=== PATIENT | female | born 1940 | race Hispanic/Latino ===

== ENCOUNTER 2016-09-26 13:11 | Inpatient (IN) | payer MEDICAID, MEDICARE ==
[2016-09-26] MEDS ORDERED: Iohexol 240 (50 ml) PO ONE (15:00)
[2016-09-26] MEDS ORDERED: Sodium Chloride 0.9% 1,000 ML IV STA (15:00)
[2016-09-26] MEDS ORDERED: Iohexol 240 (50 ml) ONE (15:06)
--- NOTE | 2016-09-26 15:06 | ED PDOC ---
HPI: Abdomen Time Seen by Provider: 09/26/16 14:52 Chief Complaint (Nursing): Abdominal Pain Chief Complaint (Provider): Abdominal Pain History Per: Patient History/Exam Limitations: no limitations Onset/Duration Of Symptoms: Days (2x) Current Symptoms Are (Timing): Still Present Severity: Moderate Location Of Pain/Discomfort: RLQ Associated Symptoms: denies: Fever, Vomiting, Diarrhea, Urinary Symptoms Additional Complaint(s): 76 year old female with a pertinent medical history of colon CA (last chemo was 3x years ago) status post colon resection presents to the ED with complaints of RLQ abdominal pain that started 2x days ago. She denies having vomiting, diarrhea, fevers, and urinary symptoms. PMD: Karin Eagle MD Past Medical History Reviewed: Historical Data, Nursing Documentation, Vital Signs Vital Signs: Last Vital Signs Temp 98.4 F 09/26/16 14:24 Pulse 73 09/26/16 14:24 Resp 20 09/26/16 14:24 BP 141/59 L 09/26/16 14:24 Pulse Ox 98 09/26/16 17:36 - Medical History PMH: Dementia, HTN, Hyperlipidemia Other PMH: colon cancer, last chemo 3x years ago - Surgical History Other surgeries: colon resection - Family History Family History: States: Unknown Family Hx - Social History Alcohol: None Drugs: Denies - Allergies Allergies/Adverse Reactions: Allergies Allergy/AdvReac Type Severity Reaction Status Date / Time diphenhydramine Allergy ITCHING Verified 09/26/16 14:28 [From Benadryl] methylprednisolone Allergy ITCHING Verified 09/26/16 14:28 moxifloxacin Allergy ITCHING Verified 09/26/16 14:28 Review of Systems ROS Statement: Except As Marked, All Systems Reviewed And Found Negative Constitutional: Negative for: Fever Gastrointestinal: Positive for: Abdominal Pain (RLQ). Negative for: Vomiting, Diarrhea Genitourinary Female: Negative for: Dysuria, Hematuria Physical Exam - Reviewed Nursing Documentation Reviewed: Yes Vital Signs Reviewed: Yes - Physical Exam Appears: Positive for: Well, Non-toxic, No Acute Distress Head Exam: Positive for: ATRAUMATIC, NORMOCEPHALIC Skin: Positive for: Normal Color, Warm, Dry Cardiovascular/Chest: Positive for: Regular Rate, Rhythm Respiratory: Positive for: Normal Breath Sounds. Negative for: Respiratory Distress Gastrointestinal/Abdominal: Positive for: Tenderness (RLQ). Negative for: Rebound Extremity: Positive for: Normal ROM Neurologic/Psych: Positive for: Alert, Oriented (3x) - Laboratory Results Result Diagrams: 09/26/16 15:15 09/26/16 15:15 - ECG O2 Sat by Pulse Oximetry: 98 (RA) Pulse Ox Interpretation: Normal Medical Decision Making Medical Decision Makin:52 Initial impression: 76 year old female with RLQ abdominal pain. Initial plan: * CT abd and pelvis with PO and IV contrast * CMP * udip * CBC * IV NS 1,000ml IV 100mls/hr * omnipaque 240 50ml PO * reevaluation 17:00 Patient is signed out by me to Everton Ashton III, MD pending CT abdomen and pelvis, reevaluation, and final disposition. Scribe Attestation: Documented by Palma Frank, acting as a scribe for Andrew Gaona MD. Provider Scribe Attestation: All medical record entries made by the Scribe were at my direction and personally dictated by me. I have reviewed the chart and agree that the record accurately reflects my personal performance of the history, physical exam, medical decision making, and the department course for this patient. I have also personally directed, reviewed, and agree with the discharge instructions and disposition. Disposition - Clinical Impression Clinical Impression: Abdominal pain - Patient ED Disposition Is Patient to be Admitted: Transfer of Care - Disposition Disposition: Transfer of Care Disposition Time: 17:41 Condition: FAIR Patient Signed Over To: Everton Ashton III
[2016-09-26 15:36] LABS: BASO % 0.6 % (0.0-2.0); EOS # 0.1 K/uL (0.0-0.7); EOS % 1.7 % (0.0-4.0); HEMATOCRIT 39.8 % (34.0-47.0); LYMPH # 1.5 K/uL (1.0-4.3); LYMPH % 23.8 % (20.0-40.0); MEAN CELL VOLUME 90.5 fl (81.0-99.0); MEAN CORPUSCULAR HEMOGLOBIN 29.9 pg (27.0-31.0); MEAN PLATELET VOLUME 8.2 fl (7.2-11.7); MONO # 0.7 K/uL (0.0-0.8); MONO % 10.8 % (0.0-10.0); NEUT % 63.1 % (50.0-75.0); RED CELL DISTRIBUTION WIDTH 13.5 % (11.5-14.5); WHITE BLOOD COUNT 6.3 K/uL (4.8-10.8)
[2016-09-26 15:43] LABS: ALB/GLOB RATIO 1.7 (1.0-2.1); ALKALINE PHOSPHATASE 107 U/L (38-126); ALT/SGPT 30 U/L (9-52); AST/SGOT 27 U/L (14-36); BILIRUBIN,TOTAL 0.3 mg/dl (0.2-1.3); BLOOD UREA NITROGEN 20 mg/dl (7-17); CALCIUM 8.9 mg/dL (8.4-10.2); CARBON DIOXIDE 27 mmol/L (22-30); CHLORIDE 102 mmol/L (98-107); GFR AFRICAN-AMERICAN > 60; GLUCOSE,RANDOM 94 mg/dL (65-105); POTASSIUM 3.1 MMOL/L (3.6-5.0); SODIUM 145 mmol/l (132-148); TOTAL PROTEIN 7.5 G/DL (6.3-8.2)
[2016-09-26] MEDS ORDERED: Potassium Chloride 20 mEq ER Tab PO ONE ×2 (16:08→18:35)
[2016-09-26] MEDS ORDERED: Sodium Chloride 0.9% 50 ML IV ONE (16:50)
[2016-09-26] MEDS ORDERED: Iohexol 300 50 ML ONE (16:50)
--- NOTE | 2016-09-26 17:36 | ED PDOC ---
- Laboratory Results Result Diagrams: 09/27/16 06:10 09/27/16 06:10 - ECG O2 Sat by Pulse Oximetry: 98 (RA) Medical Decision Making Medical Decision Makin:00 Patient is signed out to me by Andrew Gaona MD pending CT abdomen and pelvis , reevaluation, and final disposition. CT reveals acute cholecystitis. Admit to medicine Dr Eagle with surgical consult Dr Barnes and GI Dr Ennis. Ryann initiated. vice president compliance aware and in ED. Scribe Attestation: Documented by Palma Frank, acting as a scribe for Everton Ashton III, MD. Provider Scribe Attestation: All medical record entries made by the Scribe were at my direction and personally dictated by me. I have reviewed the chart and agree that the record accurately reflects my personal performance of the history, physical exam, medical decision making, and the department course for this patient. I have also personally directed, reviewed, and agree with the discharge instructions and disposition. Disposition Counseled Patient/Family Regarding: Studies Performed, Diagnosis, Need For Followup, Rx Given - Clinical Impression Clinical Impression: Acute cholecystitis - POA Present On Arrival: None - Disposition Disposition: Admitted as In-Patient Disposition Time: 17:45 Condition: FAIR
--- NOTE | 2016-09-26 17:51 | CT ---
PROCEDURE: CT Abdomen and Pelvis with contrast HISTORY: abd pain COMPARISON: 01/01/2016 TECHNIQUE: Contrast dose: 100 cc of Omnipaque Radiation dose: Total exam DLP = 407 mGy-cm. This CT exam was performed using one or more of the following dose reduction techniques: Automated exposure control, adjustment of the mA and/or kV according to patient size, and/or use of iterative reconstruction technique. FINDINGS: LOWER THORAX: Unremarkable. LIVER: Unremarkable. No gross lesion or ductal dilatation. GALLBLADDER AND BILE DUCTS: Mild gallbladder wall enhancement with pericholecystic fluid as well significantly dilated extrahepatic common bile duct measuring up to 18 millimeters in the lucy hepatis and worsened since the prior examination. Mild intrahepatic biliary dilatation. Correlate clinically for cholecystitis. PANCREAS: Unremarkable. No gross lesion or ductal dilatation. SPLEEN: Unremarkable. ADRENALS: Unremarkable. No mass. KIDNEYS AND URETERS: Unremarkable. No hydronephrosis. No solid mass. VASCULATURE: Unremarkable. No aortic aneurysm. BOWEL: Unremarkable. No obstruction. No gross mural thickening. APPENDIX: Normal appendix. PERITONEUM: Unremarkable. No free fluid. No free air. LYMPH NODES: Unremarkable. No enlarged lymph nodes. BLADDER: Unremarkable. REPRODUCTIVE: Unremarkable. BONES: No acute fracture. OTHER FINDINGS: None. IMPRESSION: Mild gallbladder wall enhancement with pericholecystic fluid as well significantly dilated extrahepatic common bile duct measuring up to 18 millimeters in the lucy hepatis and worsened since the prior examination. Mild intrahepatic biliary dilatation. Correlate clinically for cholecystitis
[2016-09-26] MEDS ORDERED: Piperacillin/Tazobact 4.5 GM in Sodium Chloride 0.9% 100 ML IVPB STA (18:50)
--- NOTE | 2016-09-26 20:57 | CP.PCM.CON ---
History of Present Illness - History of Present Illness History of Present Illness: SURGERY CONSULT NOTE FOR DR. VUONG 76F presents to [facility] with abdominal pain that began on Sunday. Patient and daughter states the pain comes and goes but increases in intensity each time. Pain is located in the right upper quadrant and gets worse with food intake. Last food intake was this morning. Patient denies nausea, vomiting, fevers or chills. Patient admits to diarrhea and denies constipation. PMH: Stomach and thyroid cancers (she had chemo therapy treatment years ago), HTN, HLD PSH: Ex-lap for stomach Ca, Thyroidectomy (done at [facility] ago, do not remember Surgeon) Social: denies tobacco, alcohol, illicit drug Allergies: Benadryl, Methylprednisolone, moxifloxacin Past Patient History - Past Social History Alcohol: None Drugs: Denies - CARDIAC Hx Hypertension: Yes - NEUROLOGICAL Hx Dementia: Yes - HEMATOLOGICAL/ONCOLOGICAL Hx Cancer: Yes (Stomach) - PSYCHIATRIC Hx Substance Use: No - ANESTHESIA Hx Anesthesia: Yes Hx Anesthesia Reactions: No Meds Allergies/Adverse Reactions: Allergies Allergy/AdvReac Type Severity Reaction Status Date / Time diphenhydramine Allergy ITCHING Verified 09/26/16 14:28 [From Benadryl] methylprednisolone Allergy ITCHING Verified 09/26/16 14:28 moxifloxacin Allergy ITCHING Verified 09/26/16 14:28 - Medications Medications: Current Medications Sodium Chloride (Sodium Chloride 0.9%) 1,000 mls @ 100 mls/hr IV .Q10H [facility] Stop: 09/27/16 00:59 Last Admin: 09/26/16 15:16 Dose: 100 mls/hr Physical Exam - Constitutional Appears: Non-toxic, No Acute Distress - Head Exam Head Exam: ATRAUMATIC - Eye Exam Eye Exam: EOMI, PERRL - ENT Exam ENT Exam: Mucous Membranes Moist - Respiratory Exam Respiratory Exam: Clear to Auscultation Bilateral, NORMAL BREATHING PATTERN - Cardiovascular Exam Cardiovascular Exam: REGULAR RHYTHM, +S1, +S2 - GI/Abdominal Exam GI & Abdominal Exam: Soft, Tenderness. absent: Distended, Firm, Guarding, Rebound, Rigid Additional comments: previous ex-lap scar noted. positive gutierrez's sign. - Extremities Exam Extremities exam: Negative for: pedal edema, tenderness - Neurological Exam Neurological exam: Alert, Oriented x3 - Psychiatric Exam Psychiatric exam: Normal Affect, Normal Mood - Skin Skin Exam: Dry, Intact, Normal Color, Warm Results - Vital Signs Recent Vital Signs: Last Vital Signs Temp 97.6 F 09/26/16 20:34 Pulse 95 H 09/26/16 20:34 Resp 18 09/26/16 20:34 BP 150/72 09/26/16 20:34 Pulse Ox 98 09/26/16 20:34 - Labs Result Diagrams: 09/26/16 15:15 09/26/16 15:15 Labs: Laboratory Results - last 24 hr 09/26/16 19:04 Lipase 28 Assessment & Plan - Assessment and Plan (Free Text) Assessment: 76F presents with abdominal pain 2/[address] Scan: Mild gallbladder wall enhancement with pericholecystic fluid as well, signficantly dilated [id number], worsened since prior LFTs: within normal limits Plan: - NPO, IVF, Antibiotics, pain control - Abdominal US - CBC/CMP - GI consult recommended - We will continue to follow patient Discussed with Dr. Molly Lynn, PGY1
[2016-09-27] MEDS ORDERED: Piperacillin/Tazobact 3.375 GM in Sodium Chloride 0.9% 100 ML IVPB SCH (01:00)
[2016-09-27] MEDS ORDERED: Sodium Chloride 0.9% 1,000 ML IV SCH (01:00)
[2016-09-27] MEDS: Potassium Chl 20 mEq in D5-NS 1,000 ML IV SCH ×2 (01:26→09:12)
[2016-09-27] MEDS ORDERED: HYDROmorphone 0.5 mg/0.5 ml ISec IVP PRN (03:51)
[2016-09-27 07:24] LABS: BASO % 0.7 % (0.0-2.0); EOS # 0.2 K/uL (0.0-0.7); EOS % 3.7 % (0.0-4.0); HEMATOCRIT 36.4 % (34.0-47.0); LYMPH % 21.7 % (20.0-40.0); MEAN CELL VOLUME 90.4 fl (81.0-99.0); MEAN CORPUSCULAR HEMOGLOBIN 30.5 pg (27.0-31.0); MEAN CORPUSCULAR HGB CONC 33.8 g/dL (33.0-37.0); MEAN PLATELET VOLUME 8.3 fl (7.2-11.7); MONO # 0.6 K/uL (0.0-0.8); MONO % 12.8 % (0.0-10.0); NEUT # 2.9 K/uL (1.8-7.0); NEUT % 61.1 % (50.0-75.0); NRBC % 0.2 % (0.0-0.0); RED CELL DISTRIBUTION WIDTH 13.2 % (11.5-14.5); WHITE BLOOD COUNT 4.7 K/uL (4.8-10.8)
[2016-09-27 07:27] LABS: ALB/GLOB RATIO 1.6 (1.0-2.1); ALKALINE PHOSPHATASE 79 U/L (38-126); ALT/SGPT 31 U/L (9-52); AST/SGOT 21 U/L (14-36); BILIRUBIN,TOTAL 0.4 mg/dl (0.2-1.3); BLOOD UREA NITROGEN 10 mg/dl (7-17); CALCIUM 8.4 mg/dL (8.4-10.2); CARBON DIOXIDE 28 mmol/L (22-30); CHLORIDE 106 mmol/L (98-107); GFR AFRICAN-AMERICAN > 60; GLUCOSE,RANDOM 104 mg/dL (65-105); POTASSIUM 3.8 MMOL/L (3.6-5.0); SODIUM 144 mmol/l (132-148)
--- NOTE | 2016-09-27 08:16 | CP.PCM.PN ---
Subjective - Date & Time of Evaluation Date of Evaluation: 09/27/16 Time of Evaluation: 08:14 - Subjective Subjective: General Surgery Progress Note for Dr. Barnes This 76F was seen and examined this AM at bedside. She reports no acute events overnight. Her pain is currently well controlled. She is passing gas has not had a BM since yesterday. She denies any fevers, chills, chest pain, nausea, diarrhea. Objective - Vital Signs/Intake and Output Vital Signs (last 24 hours): Temp Pulse Resp BP Pulse Ox 98.0 F 71 20 142/72 96 09/27/16 08:11 09/27/16 08:11 09/27/16 08:11 09/27/16 08:11 09/27/16 08:11 - Medications Medications: Current Medications Famotidine (Pepcid) 20 mg IVP DAILY [facility] Hydromorphone HCl (Dilaudid) 0.5 mg IVP Q4 PRN PRN Reason: Pain, moderate (4-7) Potassium Chloride/Dextrose/Sod Cl (Potassium Chl 20 Meq In D5-Ns) 1,000 mls @ 100 mls/hr IV .Q10H [facility] Stop: 09/27/16 23:06 Last Admin: 09/27/16 01:26 Dose: 100 mls/hr Ceftriaxone Sodium 1 gm/ (Sodium Chloride) 100 mls @ 100 mls/hr IVPB DAILY [facility] - Labs Labs: 09/27/16 06:10 09/27/16 06:10 PT 10.6 SECONDS (9.6-11.2) 09/27/16 06:10 INR 1.02 (0.92-1.08) 09/27/16 06:10 APTT 26.0 SECONDS (23.3-32.5) 09/27/16 06:10 - Constitutional Appears: Non-toxic, No Acute Distress - Head Exam Head Exam: ATRAUMATIC, NORMOCEPHALIC - Eye Exam Eye Exam: EOMI - ENT Exam ENT Exam: Mucous Membranes Moist - Respiratory Exam Respiratory Exam: NORMAL BREATHING PATTERN - Cardiovascular Exam Cardiovascular Exam: REGULAR RHYTHM - GI/Abdominal Exam GI & Abdominal Exam: Soft. absent: Distended, Firm, Guarding, Rigid, Tenderness - Extremities Exam Extremities Exam: Normal Inspection - Neurological Exam Neurological Exam: Alert, Awake - Psychiatric Exam Psychiatric exam: Normal Affect, Normal Mood - Skin Skin Exam: Dry, Intact Assessment and Plan - Assessment and Plan (Free Text) Assessment: This is a 76F with a PMH of stomach and thyroid cancer, HTn, HLD who presented with abdominal pain. CT abd significant for GB wall enchancment with pericholecystic fluid, and a 18mm CBD. Vital signs stable, Labs WNL US report pending MRCP pending will followup GI consulted PT NPO Continue antibiotics Continue pain control Will discuss with Dr. Molly Chan PGY-6
--- NOTE | 2016-09-27 09:28 | US ---
HISTORY: abdominal pain, CBD 18mm COMPARISON: CT scan dated same day. TECHNIQUE: Sonographic evaluation of the abdomen. FINDINGS: LIVER: Measures cm. Normal echogenicity of the liver parenchyma. No mass. No intrahepatic bile duct dilatation. GALLBLADDER: Diffuse gallbladder wall thickening without calculi. Dilated extrahepatic common bile duct measuring up to 14 millimeters. COMMON BILE DUCT: Measures mm. No stones. No dilatation. PANCREAS: Unremarkable as visualized. No mass. pancreatic duct dilatation. RIGHT KIDNEY: Measures cm. Normal echogenicity. No calculus, mass, or hydronephrosis. LEFT KIDNEY: Measures cm. Normal echogenicity. No calculus, mass, or hydronephrosis. SPLEEN: Normal in size and contour. No mass. AORTA: No aneurysmal dilatation. IVC: Unremarkable. OTHER FINDINGS: None. IMPRESSION: Gallbladder wall thickening with dilated common bile duct. No definite evidence of choledocholithiasis. No gross pancreatic mass, however, pancreatic duct dilatation is noted. Correlate with ERCP if clinically indicated.
--- NOTE | 2016-09-27 09:52 | CP.PCM.CON ---
History of Present Illness - History of Present Illness History of Present Illness: THE PATIENT IS A 76 YEAR OLD FEMALE WITH A HISTORY OF HYPERTENSION, HYPERLIPIDEMIA, THYROID CANCER AND COLON CANCER. SHE HAS HAD ABDOMINAL PAIN SINCE LAST WEEKEND AND WAS ADMITTED AND HAS A DIAGNOSIS OF CHOLECYSTITIS AND IS RECEIVING IV ANTIBIOTICS. SHE WAS SEEN BY SURGERY. CARDIOLOGY WAS CALLED TO SEE THE PATIENT PRIOR TO POSSIBLE SURGERY. SHE DENIES ANY HISTORY OF CAD OR CHEST PAIN. HER ABDOMINAL PAIN IS A LITTLE BETTER TODAY. Past Patient History - Past Social History Smoking Status: Never Smoked - CARDIAC Hx Cardiac Disorders: Yes Hx Hypercholesterolemia: Yes Hx Hypertension: Yes - NEUROLOGICAL Hx Dementia: Yes Hx Dizziness: Yes - HEMATOLOGICAL/ONCOLOGICAL Hx Cancer: Yes (COLON CA) Hx Chemotherapy: Yes (3.5 YEARS AGO) - MUSCULOSKELETAL/RHEUMATOLOGICAL Hx Falls: Yes - GASTROINTESTINAL Hx Diarrhea: Yes - PSYCHIATRIC Hx Substance Use: No - SURGICAL HISTORY Other/Comment: COLON RESECTION - ANESTHESIA Hx Anesthesia: Yes Hx Anesthesia Reactions: No Hx Malignant Hyperthermia: No Has any member of the family had a problem w/ anesthesia?: No Meds Allergies/Adverse Reactions: Allergies Allergy/AdvReac Type Severity Reaction Status Date / Time diphenhydramine Allergy ITCHING Verified 09/26/16 14:28 [From Benadryl] methylprednisolone Allergy ITCHING Verified 09/26/16 14:28 moxifloxacin Allergy ITCHING Verified 09/26/16 14:28 - Medications Medications: Current Medications Famotidine (Pepcid) 20 mg IVP DAILY [facility] Last Admin: 09/27/16 09:36 Dose: 20 mg Hydromorphone HCl (Dilaudid) 0.5 mg IVP Q4 PRN PRN Reason: Pain, moderate (4-7) Potassium Chloride/Dextrose/Sod Cl (Potassium Chl 20 Meq In D5-Ns) 1,000 mls @ 100 mls/hr IV .Q10H [facility] Stop: 09/27/16 23:06 Last Admin: 09/27/16 09:12 Dose: Not Given Ceftriaxone Sodium 1 gm/ (Sodium Chloride) 100 mls @ 100 mls/hr IVPB DAILY [facility] Last Admin: 09/27/16 09:36 Dose: 100 mls/hr Physical Exam - Respiratory Exam Respiratory Exam: Clear to Auscultation Bilateral - Cardiovascular Exam Cardiovascular Exam: REGULAR RHYTHM, +S1, +S2 - Extremities Exam Extremities exam: Positive for: normal inspection - Additional Findings Additional findings: EKG NSR CXR CLEAR Results - Vital Signs Recent Vital Signs: Last Vital Signs Temp 98.0 F 09/27/16 08:11 Pulse 71 09/27/16 08:11 Resp 20 09/27/16 08:11 BP 142/72 09/27/16 08:11 Pulse Ox 96 09/27/16 08:11 - Labs Result Diagrams: 09/27/16 06:10 09/27/16 06:10 Labs: Laboratory Results - last 24 hr 09/26/16 09/27/16 09/27/16 19:04 06:10 06:10 WBC 4.7 L RBC 4.02 Hgb 12.3 Hct 36.4 MCV 90.4 MCH 30.5 MCHC 33.8 RDW 13.2 Plt Count 239 MPV 8.3 Neut % (Auto) 61.1 Lymph % (Auto) 21.7 Alpine % (Auto) 12.8 H Eos % (Auto) 3.7 Baso % (Auto) 0.7 Neut # 2.9 Lymph # 1.0 Alpine # 0.6 Eos # 0.2 Baso # 0.0 PT INR APTT Sodium 144 Potassium 3.8 Chloride 106 Carbon Dioxide 28 Anion Gap 13 BUN 10 Creatinine 0.7 Est GFR ( Amer) > 60 Est GFR (Non-Af Amer) > 60 Random Glucose 104 Calcium 8.4 Total Bilirubin 0.4 AST 21 ALT 31 Alkaline Phosphatase 79 Total Protein 6.0 L Albumin 3.8 Globulin 2.3 Albumin/Globulin Ratio 1.6 Lipase 28 09/27/16 06:10 WBC RBC Hgb Hct MCV MCH MCHC RDW Plt Count MPV Neut % (Auto) Lymph % (Auto) Alpine % (Auto) Eos % (Auto) Baso % (Auto) Neut # Lymph # Alpine # Eos # Baso # PT 10.6 INR 1.02 APTT 26.0 Sodium Potassium Chloride Carbon Dioxide Anion Gap BUN Creatinine Est GFR ( Amer) Est GFR (Non-Af Amer) Random Glucose Calcium Total Bilirubin AST ALT Alkaline Phosphatase Total Protein Albumin Globulin Albumin/Globulin Ratio Lipase Assessment & Plan - Assessment and Plan (Free Text) Assessment: CHOLECYSTITIS HYPERTENSION HYPERLIPIDEMIA CA OF THE COLON AND THYROID Plan: THE PATIENT IS NPO AND ON IV FLUIDS AND IV ANTIBIOTICS FOR ECHO AND MRCP TODAY
--- NOTE | 2016-09-27 10:16 | RAD ---
HISTORY: pre sx COMPARISON: No prior. FINDINGS: LUNGS: No active pulmonary disease. PLEURA: No significant pleural effusion identified, no pneumothorax apparent. CARDIOVASCULAR: Normal. OSSEOUS STRUCTURES: No significant abnormalities. VISUALIZED UPPER ABDOMEN: Normal. OTHER FINDINGS: None. IMPRESSION: No active disease.
--- NOTE | 2016-09-27 10:36 | CARD ---
APPROVED REPORT EXAM: Two-dimensional and M-mode echocardiogram with Doppler and color Doppler. Other Information Quality : Good[employer]hythm : 2D DIMENSIONS IVSd1.49 (0.7-1.1cm)LVDd4.04 (3.9-5.9cm) LVOT Diameter1.70 (1.8-2.4cm)PWd0.97 (0.7-1.1cm) IVSs0.96 (0.8-1.2cm)LVDs2.72 (2.5-4.0cm) FS (%) 32.7 %PWs1.35 (0.8-1.2cm) M-Mode DIMENSIONS Left Atrium (MM)4.09 (2.5-4.0cm)Aortic Root3.16 (2.2-3.7cm) Aortic Cusp Exc.1.42 (1.5-2.0cm) Aortic Valve LVOT Peak Dkdopabw29.1cm/Donna P 1/2 Oldz000pp Mitral Valve MV E Rkgxnwbp80.5cm/sMV E Peak Gr.139mmHgMV DECEL [id number] MV A Hrlikira04.1cm/sMV VJK23xiA/A ratio0.8 MVA (PHT)3.16cm2 TDI Lateral E' Peak V8.80cm/sMedial E' Peak V7.09cm/sE/Lateral E'6.5 E/Medial E'8.1 Pulmonary Valve PV Peak Xzrhksgw779.2cm/s Tricuspid Valve TR Peak Paqsdevv491ue/sRAP [id number] Peak Gr.23mmHg [id number] LEFT VENTRICLE The left ventricle is normal size. There is normal left ventricular wall thickness. Left ventricle systolic function is normal. The Ejection Fraction is 60-65%. There is normal LV segmental wall motion. Transmitral Doppler flow pattern is Grade I-abnormal relaxation pattern. RIGHT VENTRICLE The right ventricle is normal size. There is normal right ventricular wall thickness. The right ventricular systolic function is normal. ATRIA The left atrium size is normal. The right atrium size is normal. AORTIC VALVE The aortic valve is mildly sclerotic. There is mild aortic regurgitation. There is no aortic valvular stenosis. MITRAL VALVE The mitral valve is normal in structure. There is no evidence of mitral valve prolapse. There is no mitral valve stenosis. Mitral regurgitation is moderate. TRICUSPID VALVE The tricuspid valve is normal in structure. There is moderate tricuspid regurgitation. Right ventricular systolic pressure is estimated at 35 mmHg. There is mild pulmonary hypertension. PULMONIC VALVE The pulmonary valve is normal in structure and function. There is trace to mild pulmonic valvular regurgitation. GREAT VESSELS The aortic root is normal in size. Due to poor image quality, the IVC could not be assessed. PERICARDIAL EFFUSION The pericardium appears normal. <Conclusion> The left ventricle is normal size. There is normal left ventricular wall thickness. There is normal LV segmental wall motion. Left ventricle systolic function is normal. The Ejection Fraction is 60-65%. Transmitral Doppler flow pattern is Grade I-abnormal relaxation pattern. Mitral regurgitation is moderate.
--- NOTE | 2016-09-27 10:39 | CARD ---
APPROVED REPORT EKG Measurement Heart [id number] <Conclusion> Normal sinus rhythm Minimal voltage criteria for LVH, may be normal variant Nonspecific ST abnormality Abnormal ECG
--- NOTE | 2016-09-27 11:57 | MRI ---
PROCEDURE: MRI Abdomen without contrast HISTORY: COMPARISON: None available. TECHNIQUE: Multisequence, multiplanar MR images of the abdomen without gadolinium contrast enhancement. FINDINGS: LIVER: Unremarkable. GALLBLADDER: Gallbladder wall thickening with pericholecystic fluid is again noted. No gallstones are observed. There re-demonstration is significant extrahepatic biliary dilatation with the common bile duct measuring 19 millimeters in the lucy hepatis and 15 millimeters in the pancreatic head. Mild central intrahepatic biliary dilatation. There is also pancreatic duct dilatation. There is no evidence of choledocholithiasis or gross mass at the ampulla.. SPLEEN: Unremarkable. ADRENALS: Unremarkable. KIDNEYS: Unremarkable. PANCREAS: Unremarkable. AORTA: No aneurysm. ASCITES: None. PERITONEUM: Unremarkable. LYMPH NODES: Unremarkable. OTHER FINDINGS: None. IMPRESSION: Gallbladder wall thickening with pericholecystic fluid again noted. No evidence of cholelithiasis . Re-demonstration of significant extrahepatic biliary dilatation with the common bile duct measuring 19 millimeters in the lucy hepatis and 15 millimeters in the pancreatic head. No pancreatic duct dilatation. No evidence of choledocholithiasis or gross mass at the ampulla.. 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 No evidence of pancreatic head mass.
--- NOTE | 2016-09-27 16:35 | CP.PCM.CON ---
History of Present Illness - History of Present Illness History of Present Illness: CC: Abdominal pain HPI: 76 year old female who presents with abdominal pain. She reports the pain started 3-4 days ago, she localizes pain to the right side, including upper and lower quadrants. She denies nausea or vomiting. No fever. No chest pain or sob. She has never had this pain before. Currently it has improved a bit with pain medications. She denies jaundice, pruritis, change in urine, weight loss. She reports h/o colon cancer s/p resection and remission, although another document notes possible gastric cancer which was resection. No blood in stool or constipation. PMHx: Thyroid ca, Colon cancer s/p resection, HTN, HLD PSHx: Colon resection, Thyroidectomy SocialHx: Negative for tobacco, alcohol, illicit drugs FHx denies family history of GI cancer ROS a comprehensive review of systems was performed and was negative apart from HPI. Past Patient History - Past Social History Smoking Status: Never Smoked - CARDIAC Hx Cardiac Disorders: Yes Hx Hypercholesterolemia: Yes Hx Hypertension: Yes - NEUROLOGICAL Hx Dementia: Yes Hx Dizziness: Yes - HEMATOLOGICAL/ONCOLOGICAL Hx Cancer: Yes (COLON CA) Hx Chemotherapy: Yes (3.5 YEARS AGO) - MUSCULOSKELETAL/RHEUMATOLOGICAL Hx Falls: Yes - GASTROINTESTINAL Hx Diarrhea: Yes - PSYCHIATRIC Hx Substance Use: No - SURGICAL HISTORY Other/Comment: COLON RESECTION - ANESTHESIA Hx Anesthesia: Yes Hx Anesthesia Reactions: No Hx Malignant Hyperthermia: No Has any member of the family had a problem w/ anesthesia?: No Meds Allergies/Adverse Reactions: Allergies Allergy/AdvReac Type Severity Reaction Status Date / Time diphenhydramine Allergy ITCHING Verified 09/26/16 14:28 [From Benadryl] methylprednisolone Allergy ITCHING Verified 09/26/16 14:28 moxifloxacin Allergy ITCHING Verified 09/26/16 14:28 - Medications Medications: Current Medications Diltiazem HCl (Cardizem Cd) 240 mg PO DAILY [facility] Donepezil HCl (Aricept) 5 mg PO DAILY [facility] Home Med (Azelastine Hcl [Azelastine Hcl]) 1 drop OU DAILY [facility] Hydromorphone HCl (Dilaudid) 0.5 mg IVP Q4 PRN PRN Reason: Pain, moderate (4-7) Potassium Chloride/Dextrose/Sod Cl (Potassium Chl 20 Meq In D5-Ns) 1,000 mls @ 100 mls/hr IV .Q10H [facility] Stop: 09/27/16 23:06 Last Admin: 09/27/16 09:12 Dose: Not Given Ceftriaxone Sodium 1 gm/ (Sodium Chloride) 100 mls @ 100 mls/hr IVPB DAILY [facility] Last Admin: 09/27/16 09:36 Dose: 100 mls/hr Levothyroxine Sodium (Synthroid) 100 mcg PO DAILY [facility] Multivitamins/Minerals (Therapeutic-M Tab) 1 tab PO DAILY [facility] Pantoprazole Sodium (Protonix Ec Tab) 40 mg PO DAILY [facility] Physical Exam - Constitutional Appears: Well, No Acute Distress - Head Exam Head Exam: ATRAUMATIC, NORMOCEPHALIC - Eye Exam Eye Exam: PERRL. absent: Scleral icterus Pupil Exam: PERRL - ENT Exam ENT Exam: Mucous Membranes Moist, Normal Oropharynx - Neck Exam Neck exam: Negative for: Lymphadenopathy, Thyromegaly - Respiratory Exam Respiratory Exam: Clear to Auscultation Bilateral, NORMAL BREATHING PATTERN. absent: Respiratory Distress, Stridor - Cardiovascular Exam Cardiovascular Exam: REGULAR RHYTHM, +S1, +S2 - GI/Abdominal Exam GI & Abdominal Exam: Soft. absent: Distended, Guarding, Tenderness - Extremities Exam Extremities exam: Positive for: normal capillary refill. Negative for: pedal edema - Neurological Exam Neurological exam: Alert, Oriented x3 - Psychiatric Exam Psychiatric exam: Normal Affect, Normal Mood - Skin Skin Exam: Dry, Normal Color, Warm Results - Vital Signs Recent Vital Signs: Last Vital Signs Temp 98.4 F 09/27/16 16:10 Pulse 80 09/27/16 16:10 Resp 18 09/27/16 16:10 BP 136/75 09/27/16 16:10 Pulse Ox 96 09/27/16 16:10 - Labs Result Diagrams: 09/27/16 06:10 09/27/16 06:10 Labs: Laboratory Results - last 24 hr 09/26/16 09/27/16 09/27/16 19:04 06:10 06:10 WBC 4.7 L RBC 4.02 Hgb 12.3 Hct 36.4 MCV 90.4 MCH 30.5 MCHC 33.8 RDW 13.2 Plt Count 239 MPV 8.3 Neut % (Auto) 61.1 Lymph % (Auto) 21.7 Stanley % (Auto) 12.8 H Eos % (Auto) 3.7 Baso % (Auto) 0.7 Neut # 2.9 Lymph # 1.0 Stanley # 0.6 Eos # 0.2 Baso # 0.0 PT INR APTT Sodium 144 Potassium 3.8 Chloride 106 Carbon Dioxide 28 Anion Gap 13 BUN 10 Creatinine 0.7 Est GFR ( Amer) > 60 Est GFR (Non-Af Amer) > 60 Random Glucose 104 Calcium 8.4 Total Bilirubin 0.4 AST 21 ALT 31 Alkaline Phosphatase 79 Total Protein 6.0 L Albumin 3.8 Globulin 2.3 Albumin/Globulin Ratio 1.6 Lipase 28 09/27/16 06:10 WBC RBC Hgb Hct MCV MCH MCHC RDW Plt Count MPV Neut % (Auto) Lymph % (Auto) Stanley % (Auto) Eos % (Auto) Baso % (Auto) Neut # Lymph # Stanley # Eos # Baso # PT 10.6 INR 1.02 APTT 26.0 Sodium Potassium Chloride Carbon Dioxide Anion Gap BUN Creatinine Est GFR ( Amer) Est GFR (Non-Af Amer) Random Glucose Calcium Total Bilirubin AST ALT Alkaline Phosphatase Total Protein Albumin Globulin Albumin/Globulin Ratio Lipase Assessment & Plan - Assessment and Plan (Free Text) Assessment: 76 year old female with h/o HTN, HLD, 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 1. Abdominal pain 2. Biliary dilation Plan: -CT and US images reviewed -LFTs normal -no biliary obstruction -Recommend MRCP to evaluate dilated CBD/PD -no obvious pancreas mass identified -may ultimately need outpatient EUS for further evaluation -continue antibiotics for possible cholecystitis -appreciate surgical evaluation and opinion on gallbladder - Date & Time Date: 09/27/16 Time: 16:35
--- NOTE | 2016-09-28 05:15 | HP ---
HISTORY OF PRESENT ILLNESS: This is a 76-year-old female with history of multiple medical problems including lymphoma in remission, status post chemotherapy. The patient presented with upper abdominal pain and she was evaluated in the Emergency Room and she had abdominal and pelvic CAT scan that showed findings suggestive of gallbladder wall enhancement with pericholecystic fluid and dilatation of the common bile duct measuring up to 18 mm . The patient was started on antibiotics. Assessment and GI consultation was called. The patient was admitted for further management. This patient stated the pain was for 2 days, progressive and was associated with nausea and vomiting and decreased oral intake. REVIEW OF SYSTEMS: Other review of systems is negative. ALLERGIES: No known allergy. HOME MEDICATIONS: Include Tramadol 50 mg daily, diltiazem 240 mg daily, aspirin 81 mg daily, simvastatin 40 mg daily, omeprazole 40 mg daily, Aricept 10 mg daily, Synthroid 100 mcg daily. SOCIAL HISTORY: No history of smoking, ETOH or substance abuse. FAMILY HISTORY: Noncontributory. PAST MEDICAL HISTORY: Lymphoma, hypercholesterolemia, hypothyroidism, and hypertension. PHYSICAL EXAMINATION: GENERAL: The patient is in bed, comfortable at the time of this examination. There is no abdominal pain. VITAL SIGNS: Blood pressure was 142/72, temperature 98.0, respiratory rate 20, pulse 71. HEENT: Pupils equal, reactive to light. Normal-appearing mucosa of the conjunctivae, oropharyngeal and nasal membrane mucosa. NECK: Supple, no JVD, no carotid bruit, no lymph node, no thyromegaly. CHEST AND LUNGS: Bilateral symmetrical expansion, good air exchange, no rales, no rhonchi. CARDIOVASCULAR: PMI not localized. S1, S2. No additional sounds. ABDOMEN: Normoactive bowel sounds, no tenderness, no organomegaly, no masses. EXTREMITIES: No cyanosis, no clubbing, no edema. CENTRAL NERVOUS SYSTEM: Alert, awake, oriented x 3. No neurological deficits could be appreciated. ASSESSMENT: Possible cholecystitis that quite improved with IV antibiotics and rule out any extra hepatitic biliary obstruction. PLAN: Case was discussed with Dr. Barnes and MRCP was ordered. We will follow the results and make further recommendations of GI and surgery. Karin Eagle MD cc: [phone] TT: 09/28/2016 00:20:08 [facility] # [id number] an 09/28/2016 04:15:26 MTDSpencer
--- NOTE | 2016-09-28 08:32 | CP.PCM.PN ---
Subjective - Date & Time of Evaluation Date of Evaluation: 09/28/16 Time of Evaluation: 08:30 - Subjective Subjective: General Surgery - Dr. Barnes Pt S&EJoanna HERNANDEZ. Pt. denies any complaints at this time. She denies any abdominal pain and is tolerating regular diet. No N/V, F/C, SOB/CP. Objective - Vital Signs/Intake and Output Vital Signs (last 24 hours): Temp Pulse Resp BP Pulse Ox 97.5 F L 74 19 137/77 96 09/28/16 00:54 09/28/16 00:54 09/28/16 00:54 09/28/16 00:54 09/28/16 00:54 - Medications Medications: Current Medications Diltiazem HCl (Cardizem Cd) 240 mg PO DAILY [facility] Donepezil HCl (Aricept) 5 mg PO DAILY [facility] Home Med (Azelastine Hcl [Azelastine Hcl]) 1 drop OU DAILY [facility] Hydromorphone HCl (Dilaudid) 0.5 mg IVP Q4 PRN PRN Reason: Pain, moderate (4-7) Ceftriaxone Sodium 1 gm/ (Sodium Chloride) 100 mls @ 100 mls/hr IVPB DAILY [facility] Last Admin: 09/27/16 09:36 Dose: 100 mls/hr Levothyroxine Sodium (Synthroid) 100 mcg PO DAILY [facility] Multivitamins/Minerals (Therapeutic-M Tab) 1 tab PO DAILY [facility] Pantoprazole Sodium (Protonix Ec Tab) 40 mg PO DAILY [facility] - Labs Labs: 09/27/16 06:10 09/27/16 06:10 PT 10.6 SECONDS (9.6-11.2) 09/27/16 06:10 INR 1.02 (0.92-1.08) 09/27/16 06:10 APTT 26.0 SECONDS (23.3-32.5) 09/27/16 06:10 - Constitutional Appears: No Acute Distress - Head Exam Head Exam: ATRAUMATIC, NORMAL INSPECTION, NORMOCEPHALIC - Eye Exam Eye Exam: Normal appearance - ENT Exam ENT Exam: Mucous Membranes Moist - Respiratory Exam Respiratory Exam: NORMAL BREATHING PATTERN. absent: Respiratory Distress - Cardiovascular Exam Cardiovascular Exam: REGULAR RHYTHM - GI/Abdominal Exam GI & Abdominal Exam: Soft. absent: Distended, Guarding, Rigid, Tenderness, Rebound - Neurological Exam Neurological Exam: Alert, Oriented x3 - Psychiatric Exam Psychiatric exam: Normal Affect, Normal Mood - Skin Skin Exam: Dry, Intact Assessment and Plan - Assessment and Plan (Free Text) Assessment: 76F who presented w/ abdominal pain and imaging findings questionable for cholecystitis and dilated CBD to 18mm -Symptoms resolved, pt. currently asymptomatic and tolerating diet -No evidence for cholelithiasis or choledocholithiasis -Poss. Outpatient EUS per GI -No plans for surgical intervention at this time -Surgery will sign off, reconsult PRN -Thank you for allowing us to participate in the care of this patient DW Dr Molly Fairchild PGY2
[2016-09-28 08:36] VITALS: BP 153/83; PULSE 72; RESP 20; TEMP 97.7; O2SAT 94
[2016-09-28] MEDS ORDERED: Multivitamin With Minerals Tab PO SCH (09:00)
[2016-09-28] MEDS ORDERED: Patient's Own Med (Azelastine Hcl [Azelastine Hcl] 1 DROP) OU SCH (09:00)
[2016-09-28] MEDS ORDERED: Pantoprazole 40 mg EC Tab PO SCH (09:00)
[2016-09-28] MEDS ORDERED: diltiaZEM 240 mg/24 Hours CD Cap PO SCH (09:00)
[2016-09-28] MEDS ORDERED: Levothyroxine 100 MCG TAB PO SCH (09:00)
--- NOTE | 2016-09-28 11:00 | CP.PCM.PN ---
Subjective - Date & Time of Evaluation Date of Evaluation: 09/28/16 Time of Evaluation: 09:40 - Subjective Subjective: NO COMPLAINTS THIS AM ABDOMINAL PAIN HAS RESOLVED Objective - Vital Signs/Intake and Output Vital Signs (last 24 hours): Temp Pulse Resp BP Pulse Ox 97.7 F 72 20 153/83 H 94 L 09/28/16 08:35 09/28/16 08:35 09/28/16 08:35 09/28/16 08:35 09/28/16 08:35 - Medications Medications: Current Medications Diltiazem HCl (Cardizem Cd) 240 mg PO DAILY [facility] Last Admin: 09/28/16 08:33 Dose: 240 mg Donepezil HCl (Aricept) 5 mg PO DAILY [facility] Last Admin: 09/28/16 08:34 Dose: 5 mg Home Med (Azelastine Hcl [Azelastine Hcl]) 1 drop OU DAILY [facility] Hydromorphone HCl (Dilaudid) 0.5 mg IVP Q4 PRN PRN Reason: Pain, moderate (4-7) Ceftriaxone Sodium 1 gm/ (Sodium Chloride) 100 mls @ 100 mls/hr IVPB DAILY [facility] Last Admin: 09/28/16 08:33 Dose: 100 mls/hr Levothyroxine Sodium (Synthroid) 100 mcg PO DAILY [facility] Last Admin: 09/28/16 08:33 Dose: 100 mcg Multivitamins/Minerals (Therapeutic-M Tab) 1 tab PO DAILY [facility] Last Admin: 09/28/16 08:33 Dose: 1 tab Pantoprazole Sodium (Protonix Ec Tab) 40 mg PO DAILY [facility] Last Admin: 09/28/16 08:33 Dose: 40 mg - Labs Labs: 09/27/16 06:10 09/27/16 06:10 PT 10.6 SECONDS (9.6-11.2) 09/27/16 06:10 INR 1.02 (0.92-1.08) 09/27/16 06:10 APTT 26.0 SECONDS (23.3-32.5) 09/27/16 06:10 - Respiratory Exam Respiratory Exam: Clear to Ausculation Bilateral - Cardiovascular Exam Cardiovascular Exam: REGULAR RHYTHM, +S1, +S2 - Extremities Exam Extremities Exam: Normal Inspection Assessment and Plan - Assessment and Plan (Free Text) Assessment: HYPERTENSION CHOLECYSTITIS Plan: THE PATIENT WAS STARTED ON ORAL CARDIZEM AND LEVOTHYROXINE FOR POSSIBLE DISCHARGE TODAY WITH GI FOLLOW-UP AND OUT PATIENT US
--- NOTE | 2016-09-28 11:04 | CP.PCM.PN ---
Subjective - Date & Time of Evaluation Date of Evaluation: 09/28/16 Time of Evaluation: 10:00 - Subjective Subjective: Patient seen at bedside with daughter. No complains. Denies RUQ pain, nausea, vomiting, chills and fever. Objective - Vital Signs/Intake and Output Vital Signs (last 24 hours): Temp Pulse Resp BP Pulse Ox 97.7 F 72 20 153/83 H 94 L 09/28/16 08:35 09/28/16 08:35 09/28/16 08:35 09/28/16 08:35 09/28/16 08:35 - Medications Medications: Current Medications Diltiazem HCl (Cardizem Cd) 240 mg PO DAILY [facility] Last Admin: 09/28/16 08:33 Dose: 240 mg Donepezil HCl (Aricept) 5 mg PO DAILY [facility] Last Admin: 09/28/16 08:34 Dose: 5 mg Home Med (Azelastine Hcl [Azelastine Hcl]) 1 drop OU DAILY [facility] Hydromorphone HCl (Dilaudid) 0.5 mg IVP Q4 PRN PRN Reason: Pain, moderate (4-7) Ceftriaxone Sodium 1 gm/ (Sodium Chloride) 100 mls @ 100 mls/hr IVPB DAILY [facility] Last Admin: 09/28/16 08:33 Dose: 100 mls/hr Levothyroxine Sodium (Synthroid) 100 mcg PO DAILY [facility] Last Admin: 09/28/16 08:33 Dose: 100 mcg Multivitamins/Minerals (Therapeutic-M Tab) 1 tab PO DAILY [facility] Last Admin: 09/28/16 08:33 Dose: 1 tab Pantoprazole Sodium (Protonix Ec Tab) 40 mg PO DAILY [facility] Last Admin: 09/28/16 08:33 Dose: 40 mg - Labs Labs: 09/27/16 06:10 09/27/16 06:10 PT 10.6 SECONDS (9.6-11.2) 09/27/16 06:10 INR 1.02 (0.92-1.08) 09/27/16 06:10 APTT 26.0 SECONDS (23.3-32.5) 09/27/16 06:10 - Constitutional Appears: Well - Head Exam Head Exam: ATRAUMATIC, NORMAL INSPECTION, NORMOCEPHALIC - Eye Exam Eye Exam: EOMI, Normal appearance, PERRL - ENT Exam ENT Exam: Mucous Membranes Moist, Normal Exam - Respiratory Exam Respiratory Exam: Clear to Ausculation Bilateral, NORMAL BREATHING PATTERN - Cardiovascular Exam Cardiovascular Exam: REGULAR RHYTHM, +S1, +S2. absent: Murmur - GI/Abdominal Exam GI & Abdominal Exam: Soft, Normal Bowel Sounds. 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 Plan: -CT and US images reviewed -LFTs normal -MRCP with posisble stricture - scheduled outpatient EUS with Dr Enriquez at [place] next week -no obvious pancreas mass identified - Rest of plan as per surgery -continue antibiotics for possible cholecystitis -appreciate surgical evaluation and opinion on gallbladder - Will sign off. Thank you for letting us participate in the care of your patient
--- NOTE | 2016-09-29 00:10 | DS ---
REASON FOR ADMISSION: This is a 76-year-old female with history of multiple medical problem s who was admitted for possible cholecystitis with biliary duct dilatation. COURSE OF HOSPITALIZATION: The patient was admitted to Medical Floor and she was started on IV antib iotics. The patient had a surgical consultation done by Dr. Barnes and a GI consult done by Dr. Samina burrell. The patient had an MRCP that showed possible extrahepatic biliary stricture with common bile d uct dilatation. The patient's abdominal pain completely resolved and she was tolerating diet. GI re commended to discharge the patient and have outpatient followup for possible endoscopic ultrasound. The patient was discharged in stable condition to continue Augmentin for another week. FINAL DIAGNOSES: 1. 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 2. History of lymphoma in remission. 3. Hypertension. 4. Hypothyroidism. [facility] Ryan Eagle MD cc: 167 TT: 09/29/2016 00:09:45 an
== END 2016-09-28 12:24 | disposition home or self-care (01) | DRG 444 ==
LOC: H.ER 13:11 → H.ERHOLD 18:51 → H.MEDSURG1 22:25
PROVIDERS: ADMIT Internal Medicine; ATTEND Internal Medicine
DX: K81.0 Acute cholecystitis (principal); K83.1 Obstruction of bile duct; F03.90 Unspecified dementia, unspecified severity, without behavioral disturbance, psychotic disturbance, mood disturbance, and anxiety; I10 Essential (primary) hypertension; E03.9 Hypothyroidism, unspecified; E78.00 Pure hypercholesterolemia, unspecified; E78.5 Hyperlipidemia, unspecified; Z85.038 Personal history of other malignant neoplasm of large intestine; Z85.850 Personal history of malignant neoplasm of thyroid; K83.8 Other specified diseases of biliary tract; Z85.72 Personal history of non-Hodgkin lymphomas

== ENCOUNTER 2016-12-15 18:31 | Observation (INO) | payer MEDICARE, MEDICAID ==
[2016-12-15 18:31] VITALS: BMI 21.9
[2016-12-15] MEDS ORDERED: guaiFENesin 100 mg/5 ml Syrup UD PO STA (19:18)
[2016-12-15] MEDS ORDERED: guaiFENesin 100 mg/5 ml Syrup UD ONE (19:29)
[2016-12-15 19:49] LABS: BASO % 0.9 % (0.0-2.0); EOS # 0.2 K/uL (0.0-0.7); EOS % 3.6 % (0.0-4.0); HEMATOCRIT 37.8 % (34.0-47.0); LYMPH # 1.3 K/uL (1.0-4.3); LYMPH % 30.4 % (20.0-40.0); MEAN CELL VOLUME 90.9 fl (81.0-99.0); MEAN CORPUSCULAR HEMOGLOBIN 29.5 pg (27.0-31.0); MEAN CORPUSCULAR HGB CONC 32.4 g/dL (33.0-37.0); MEAN PLATELET VOLUME 8.3 fl (7.2-11.7); MONO # 0.5 K/uL (0.0-0.8); MONO % 12.4 % (0.0-10.0); NEUT # 2.2 K/uL (1.8-7.0); NEUT % 52.7 % (50.0-75.0); NRBC % 0.1 % (0.0-0.0); RED CELL DISTRIBUTION WIDTH 13.4 % (11.5-14.5); WHITE BLOOD COUNT 4.2 K/uL (4.8-10.8)
--- NOTE | 2016-12-15 19:49 | ED PDOC ---
HPI: SOB/CHF/COPD Time Seen by Provider: 12/15/16 18:54 Chief Complaint (Nursing): Shortness Of Breath Chief Complaint (Provider): Shortness of breath History Per: Patient History/Exam Limitations: no limitations Onset/Duration Of Symptoms: Hrs Associated Symptoms: Chest Pain, Productive Cough. denies: Fever, Chills Additional Complaint(s): Patient is a 76 year old female with a past medical history of thyroid cancer and asthma who was brought to the emergency department by her daughter for shortness of breath that started this morning with associated productive cough x5 days that has resolved and non-radiating, non-exertional mild chest pain. States that she feels like she "can't take a deep breath" and notes that she had a cough a month ago that was relieved by a liquid medication. Denies fever, chills, or weight loss. PCP: Dr. Joel Eagle Past Medical History Reviewed: Historical Data, Nursing Documentation, Vital Signs Vital Signs: Last Vital Signs Temp 98.9 F 12/15/16 18:40 Pulse 92 H 12/15/16 18:40 Resp 16 12/15/16 19:17 BP 138/78 12/15/16 18:40 Pulse Ox 97 12/15/16 22:14 - Medical History PMH: Asthma, Dementia, HTN, Hypercholesterolemia, Hyperlipidemia Denies: Chronic Kidney Disease Other PMH: Thyroid Cancer - Surgical History Surgical History: Denies: Pacemaker - Family History Family History: States: Unknown Family Hx - Social History Current smoker - smoking cessation education provided: No Ex-Smoker (has not smoked in the last 12 months): No Alcohol: None Drugs: Denies - Home Medications Home Medications: Ambulatory Orders Medication Instructions Recorded Azelastine HCl 1 drop OU DAILY 09/27/16 Donepezil [Aricept] 1 tab PO DAILY 09/27/16 Levothyroxine [Synthroid] 100 mcg PO DAILY 09/27/16 Multivitamin [Daily Juan] 1 tab PO DAILY 09/27/16 Omeprazole 40 mg PO DAILY 09/27/16 diltiaZEM CD [Cardizem CD] 240 mg PO DAILY 09/27/16 Aspirin [Adult Low Dose Aspirin EC] 81 mg PO DAILY 10/09/16 Fexofenadine HCl [Nakia NF] 180 mg PO DAILY 06/12/17 Fluticasone Propionate [Flovent 50 mcg INH DAILY 10/09/16 Diskus] Levocetirizine Dihydrochloride 5 mg PO DAILY 10/09/16 [Xyzal] Simvastatin [Zocor] 10 mg PO DAILY 10/09/16 traMADol [Ultram] 50 mg PO DAILY 10/09/16 - Allergies Allergies/Adverse Reactions: Allergies Allergy/AdvReac Type Severity Reaction Status Date / Time diphenhydramine Allergy ITCHING Verified 09/26/16 14:28 [From Benadryl] methylprednisolone Allergy ITCHING Verified 09/26/16 14:28 moxifloxacin Allergy ITCHING Verified 09/26/16 14:28 Review of Systems ROS Statement: Except As Marked, All Systems Reviewed And Found Negative Constitutional: Negative for: Fever, Chills, Weight loss Cardiovascular: Positive for: Chest Pain (Mild, non-radiating, and non- exertional) Respiratory: Positive for: Cough (resolved, productive with white phlegm), Shortness of Breath Physical Exam - Reviewed Nursing Documentation Reviewed: Yes Vital Signs Reviewed: Yes - Physical Exam Appears: Positive for: Well, Non-toxic, No Acute Distress Head Exam: Positive for: ATRAUMATIC, NORMAL INSPECTION, NORMOCEPHALIC Skin: Positive for: Normal Color, Warm, Dry Eye Exam: Positive for: Normal appearance, PERRL ENT: Positive for: Normal ENT Inspection Neck: Positive for: Normal, Supple Cardiovascular/Chest: Positive for: Regular Rate, Rhythm. Negative for: Murmur Respiratory: Positive for: Crackles (bilateral) Gastrointestinal/Abdominal: Positive for: Normal Exam, Soft Extremity: Positive for: Normal ROM. Negative for: Pedal Edema Neurologic/Psych: Positive for: Alert, Oriented - Laboratory Results Result Diagrams: 12/15/16 19:45 12/15/16 19:45 - ECG O2 Sat by Pulse Oximetry: 97 (RA) Pulse Ox Interpretation: Normal Medical Decision Making Medical Decision Making: Time: 19:16 Initial impression: Pulmonary Embolism vs. Metastasis vs. Viral Illness Initial plan: Chest CT Scan EKG Chest X-Ray Robitussin 100 mg PO Reevaluation 19:36 Chest X-Ray reviewed. 21:[address] reviewed and findings noted: FINDINGS: Pulmonary arteries: No pulmonary embolism. Aorta: Mild atherosclerotic disease. No aneurysm. Lungs: Mild centrilobular emphysematous changes. No consolidation. 0.3 cm RIGHT upper lobe nodule, stable. Pleural space: No significant effusion. No pneumothorax. Heart: Borderline cardiomegaly. No significant pericardial effusion. Mild coronary artery calcifications. Mediastinum: Small hiatal hernia. Thyroid: Not visualized. Bones/joints: Degenerative changes of spine. No acute fracture. Soft tissues: Unremarkable. Lymph nodes: No pathologically enlarged lymph nodes. Stomach and bowel: Colonic diverticula. IMPRESSION: 1. No CT evidence of pulmonary embolism. 2. Pulmonary nodule, stable. An optional follow-up chest CT at 12 months could be performed due to the high risk of malignancy. If unchanged, no further follow-up is necessary. 3. Incidental/non-acute findings are described above. Scribe Attestation: Documented by April Lopez, acting as a scribe for Mello Brewer MD. Provider Scribe Attestation: All medical record entries made by the Scribe were at my direction and personally dictated by me. I have reviewed the chart and agree that the record accurately reflects my personal performance of the history, physical exam, medical decision making, and the department course for this patient. I have also personally directed, reviewed, and agree with the discharge instructions and disposition. ED OBSERVATION Date of observation admission: 12/15/16 Time of observation admission: 19:30 - Observation admission statement Patient is being placed in observation because:: Length of time of workup. - Goals of Observation Goals of observation are:: Proper diagnosis and treatment - Progress Note Progress Note: 12/15/16 21:30 Patient feeling well, waiting dispo. 12/15/16 22:00 Pt. with neg workup so far, given age and RF's, will admit for r/o ACS. Pt. took ASA this AM. Disposition - Clinical Impression Clinical Impression: Chest pain - Disposition Disposition Time: 22:00 Condition: STABLE Forms: [employer] (Beninese)
[2016-12-15 20:05] LABS: BLOOD UREA NITROGEN 17 mg/dl (7-17); CALCIUM 8.8 mg/dL (8.4-10.2); CARBON DIOXIDE 28 mmol/L (22-30); CHLORIDE 102 mmol/L (98-107); GFR AFRICAN-AMERICAN > 60; GLUCOSE,RANDOM 102 mg/dL (65-105); POTASSIUM 3.6 MMOL/L (3.6-5.0); SODIUM 142 mmol/l (132-148)
[2016-12-15] MEDS ORDERED: Iodixanol 320 MG/ML 100 ML BOTTLE IV ONE (20:40)
[2016-12-15] MEDS ORDERED: Sodium Chloride 0.9% 50 ML IV ONE (20:40)
--- NOTE | 2016-12-15 21:45 | CT ---
EXAM: CT Angiography Chest With Intravenous Contrast CLINICAL HISTORY: 76 years old, female; Signs and symptoms and condition or disease; Other: Thyroid ca; Shortness of breath; Patient HX: See phys doc; Additional info: Cp, SOB, HX of ca, R/O out pe/metastases TECHNIQUE: Axial computed tomographic angiography images of the chest with intravenous contrast using pulmonary embolism protocol. All CT scans at this facility use one or more dose reduction techniques, viz.: automated exposure control; ma/kV adjustment per patient size (including targeted exams where dose is matched to indication; i.e. head); or iterative reconstruction technique. MIP reconstructed images were created and reviewed. Coronal and sagittal reformatted images were created and reviewed. CONTRAST: 90 mL of VISIPAQUE administered intravenously. COMPARISON: CT - CHEST,ABD,PEL W/IV PO CONTRAST 12/30/2015 10:32:11 AM FINDINGS: Pulmonary arteries: No pulmonary embolism. Aorta: Mild atherosclerotic disease. No aneurysm. Lungs: Mild centrilobular emphysematous changes. No consolidation. 0.3 cm RIGHT upper lobe nodule, stable. Pleural space: No significant effusion. No pneumothorax. Heart: Borderline cardiomegaly. No significant pericardial effusion. Mild coronary artery calcifications. Mediastinum: Small hiatal hernia. Thyroid: Not visualized. Bones/joints: Degenerative changes of spine. No acute fracture. Soft tissues: Unremarkable. Lymph nodes: No pathologically enlarged lymph nodes. Stomach and bowel: Colonic diverticula. IMPRESSION: 1. No CT evidence of pulmonary embolism. 2. Pulmonary nodule, stable. An optional follow-up chest CT at 12 months could be performed due to the high risk of malignancy. If unchanged, no further follow-up is necessary. 3. Incidental/non-acute findings are described above.
[2016-12-16 04:38] LABS: CHOLESTEROL 158 mg/dL (0-199)
[2016-12-16 04:52] VITALS: RESP 18
[2016-12-16 05:06] LABS: THYROID STIMULATING HORMONE 2.52 mIU/ML (0.46-4.68)
[2016-12-16] MEDS ORDERED: Levothyroxine 100 MCG TAB PO SCH (06:30)
[2016-12-16] MEDS ORDERED: diltiaZEM 240 mg/24 Hours CD Cap PO SCH (09:00)
[2016-12-16] MEDS ORDERED: Patient's Own Med (Omeprazole [Omeprazole] 40 MG) PO SCH (09:00)
[2016-12-16] MEDS ORDERED: Patient's Own Med (Azelastine Hcl [Azelastine Hcl] 1 DROP) OU SCH (09:00)
[2016-12-16] MEDS ORDERED: FLUTICASONE PROPIONATE 50 MCG INH SCH (09:00)
[2016-12-16] MEDS ORDERED: Pantoprazole 40 mg EC Tab PO SCH (09:00)
[2016-12-16] MEDS ORDERED: Patient's Own Med (Multivitamin [Daily Vite] 1 TAB) PO SCH (09:00)
[2016-12-16] MEDS ORDERED: Multivitamin With Minerals Tab PO SCH (09:00)
--- NOTE | 2016-12-16 09:51 | CARD ---
APPROVED REPORT EKG Measurement Heart [id number] <Conclusion> Normal sinus rhythm Moderate voltage criteria for LVH, may be normal variant Prolonged QT Abnormal ECG
[2016-12-16] MEDS ORDERED: Azithromycin 500 MG in Sodium Chloride 0.9% 250 ML IVPB STA (11:51)
[2016-12-16 12:16] VITALS: BP 141/74; PULSE 68; TEMP 97.8; O2SAT 97
--- NOTE | 2016-12-16 17:10 | RAD ---
PROCEDURE: CHEST RADIOGRAPH, 1 VIEW HISTORY: hx of thryoid and gastric CA, SOB and CP COMPARISON: Comparison chest 09/27/2016 FINDINGS: LUNGS: The interstitial markings are slightly increased and coarsened ; rule out sequela of reactive/inflammatory airway disease or viral illness. PLEURA: No pneumothorax or pleural fluid seen. Mild biapical pleural thickening left greater than right. CARDIOVASCULAR: Normal. OSSEOUS STRUCTURES: No significant abnormalities. VISUALIZED UPPER ABDOMEN: Normal. OTHER FINDINGS: None. IMPRESSION: The interstitial markings are slightly increased and coarsened ; rule out sequela of reactive/inflammatory airway disease or viral illness
--- NOTE | 2016-12-17 06:15 | CON ---
DATE: HISTORY OF PRESENT ILLNESS: The patient is a 76-year-old female who has history intestinal lymphoma. In the past, history of thyroid cancer, history of bronchial asthma because of shortness of breath. The patient was treated after she was sitting with the family and after she completed her meal she started to cough vigorously followed by shortness breath that is when the EMS was activated. The patient denies any choking or eating and denies any vomiting following the episode of cough and shortness of breath. The patient is unaware of any prior history of heart attack or coronary intervention. SOCIAL HISTORY: The patient is a nonsmoker. MEDICATIONS: Aricept 5 mg once a day, Cardizem CD 240 mg once a day, aspirin 81 mg once a day, Heparin 5000 units subcutaneous twice a day, Lipitor 5 mg once a day, Synthroid 100 mcg once a day, Ultram 50 mg p.o. twice a day. REVIEW OF SYSTEMS: No fever or chills. No hematemesis or melena. PHYSICAL EXAMINATION: GENERAL: The patient is an elderly female who does not appear to be in acute distress. VITAL SIGNS: Blood pressure 151/66, heart rate 62, temperature 97.5, and respirations 18. HEENT: Normocephalic. NECK: No JVD. CHEST: Left basal rhonchi. HEART: S1 and S2 regular. ABDOMEN: Soft. EXTREMITIES: No edema. LABORATORY DATA: WBC 4.2, hemoglobin 12.3, hematocrit 37.8, platelet count 117,000. PTT is within normal limits. normal limit. Two sets of troponin are negative. EKG revealed sinus rhythm moderate LVH, official report stated prolonged QT interval; however, my own judgment that the QT interval is within normal limits. CT angio of the chest, no evidence of pulmonary embolism, pulmonary nodules. I did review echo cardiac study which was performed today and reveled normal ejection fraction, mild aortic insufficiency and borderline pulmonary hypertension. ASSESSMENT: 1. Chest pain, myocardial infarction ruled out. 2. Hyperthyroidism. 3. History of abdominal lymphoma as well as thyroid cancer. 4. Mild aortic insufficiency. CONDITIONS: Continue Cardizem CD at 240 mg once a day, aspirin 81 mg once a day, subcutaneous heparin 5000 units twice a day, Lipitor 5 mg once a day, Synthroid 100 mcg once a day. Case was discussed with primary care physician, Dr. Eagle, who is planing to discharge the patient today and schedule the patient for an outpatient stress test. Farhat Curry MD
--- NOTE | 2016-12-17 10:01 | CARD ---
APPROVED REPORT EXAM: Two-dimensional and M-mode echocardiogram with Doppler and color Doppler. Other Information Quality : GoodRhythm : NSR INDICATION Chest Pain 2D DIMENSIONS IVSd0.74 (0.7-1.1cm)LVDd3.43 (3.9-5.9cm) LVOT Diameter2.16 (1.8-2.4cm)PWd0.58 (0.7-1.1cm) IVSs0.93 (0.8-1.2cm)LVDs3.42 (2.5-4.0cm) FS (%) 0.3 %PWs1.14 (0.8-1.2cm) M-Mode DIMENSIONS Left Atrium (MM)4.03 (2.5-4.0cm)IVSd1.06 (0.7-1.1cm) Aortic Root3.26 (2.2-3.7cm)LVDd5.44 (4.0-5.6cm) Aortic Cusp Exc.1.91 (1.5-2.0cm)PWd0.97 (0.7-1.1cm) IVSs1.09 cmFS (%) 18 % LVDs4.44 (2.0-3.8cm)PWs1.06 cm Aortic Valve AoV Peak Jsuuqdpq929.3cm/sAoV VTI28.5cmAO Peak GR.9mmHg AO Mean GR.4mmHgAI P 1/2 [id number] Mitral Valve MV E Ogqgycdz39.5cm/sMV DECEL [id number] A Ypbtajry85.6cm/s MV KNX26rzW/A ratio0.7MVA (PHT)2.46cm2 TDI Lateral E' Peak V8.96cm/sMedial E' Peak V5.54cm/sE/Lateral E'5.3 E/Medial E'8.6 Pulmonary Valve PV Peak Oxqnzrvn62.8cm/s Tricuspid Valve TR Peak Vrkrvwrq312ip/sRAP TYEVUOYK95elWeGL Peak Gr.23mmHg YYPO85upEu LEFT VENTRICLE The left ventricle is normal size. There is normal left ventricular wall thickness. Left ventricle systolic function is normal. The Ejection Fraction is 55-60%. There is normal LV segmental wall motion. Transmitral Doppler flow pattern is Grade I-abnormal relaxation pattern. RIGHT VENTRICLE The right ventricle is normal size. There is normal right ventricular wall thickness. The right ventricular systolic function is normal. ATRIA The left atrium size is at upper limits of normal. The right atrium size is normal. AORTIC VALVE The aortic valve is normal in structure. There is mild aortic regurgitation. There is no aortic valvular stenosis. MITRAL VALVE The mitral valve is normal in structure. There is no evidence of mitral valve prolapse. There is no mitral valve stenosis. Mitral regurgitation is mild. TRICUSPID VALVE The tricuspid valve is normal in structure and function. There is mild tricuspid regurgitation. Right ventricular systolic pressure is estimated at 34 mmHg. There is mild pulmonary hypertension. PULMONIC VALVE The pulmonary valve is normal in structure. There is mild pulmonic valvular regurgitation. GREAT VESSELS The aortic root is normal in size. Due to poor image quality, the IVC could not be assessed. PERICARDIAL EFFUSION The pericardium appears normal. <Conclusion> The left ventricle is normal size. There is normal left ventricular wall thickness. There is normal LV segmental wall motion. Left ventricle systolic function is normal. The Ejection Fraction is 55-60%. Transmitral Doppler flow pattern is Grade I-abnormal relaxation pattern.
--- NOTE | 2016-12-17 12:29 | DS ---
REASON FOR ADMISSION: This is a 76-year-old female who has a history of multiple medical problems presented with symptoms of shortness of breath and two bouts of cough. COURSE OF HOSPITALIZATION: The patient was admitted to medical floor and after evaluation in Emergency Room with a CAT scan, EKG, and blood work. All investigations were unremarkable. The patient had a cardiology evaluation done by Dr. Curry, and the patient was cleared for discharge. The patient was discharged in stable condition to continue azithromycin as well as Flovent. The patient also was advised to continue aspirin and her home medications. FINAL DIAGNOSES: 1. Acute viral bronchitis with hyperactive airways. 2. Hypothyroidism. 3. Hypotension. 4. History of lymphoma, in remission. [facility] MD Fco
--- NOTE | 2016-12-17 12:51 | HP ---
HISTORY OF PRESENT ILLNESS: This is a 76-year-old female with history of multiple medical problems including lymphoma which is in remission, who presented to the emergency room with symptoms of shortness of breath after 2 bouts of cough. The patient stated that she did not choke on her food. The patient stated that she has been sick and not feeling well with cough and expectoration of yellowish sputum for the last 1 week. The patient was trying to take home remedy and cough syrup without improvement. The patient denies having any chest pain. The patient denies having any current shortness of breath. The patient was worked up in the emergency room and CT angiogram was negative for pulmonary embolism and initial also was negative. REVIEW OF SYSTEMS: Negative. ALLERGIES: THE PATIENT HAS ALLERGY TO PREDNISONE AND AVELOX. SOCIAL HISTORY: No history of smoking, ETOH, or substance abuse. FAMILY HISTORY: Noncontributory. HOME MEDICATIONS: Include Flovent inhaler, 181 mg daily, Aricept 10 mg daily, aspirin 81 mg daily, Cardizem CD 240 mg daily, simvastatin 10 mg daily, omeprazole 40 mg daily, multivitamin 1 tablet daily, levothyroxine 100 mcg daily, Protonix 40 mg daily, Lipitor 5 mg daily. PAST MEDICAL HISTORY: Hypothyroidism, lymphoma, in remission; gastritis, gastroesophageal reflux disease, hypertension. PHYSICAL EXAMINATION: GENERAL: The patient is in bed, comfortable, not in any cardiopulmonary distress. VITAL SIGNS: Blood pressure 141/74, temperature 97.8, respiratory rate 18, and pulse 68. HEENT: Pupils equal, reactive to light. Normal-appearing mucosa of the conjunctivae, oropharyngeal, and nasal membrane mucosa. NECK: Supple. No JVD. No carotid bruit. No lymph node. No thyromegaly. CHEST AND LUNGS: Bilateral symmetrical expansion. Good air exchange. No rales, no rhonchi. CARDIOVASCULAR SYSTEM: PMI not localized. S1 and S2. No additional sounds. ABDOMEN: Normoactive bowel sounds. No tenderness. No organomegaly. No masses. EXTREMITIES: No cyanosis. No clubbing. No edema. CENTRAL NERVOUS SYSTEM: Alert, awake, and oriented x3. No neurological deficit could be appreciated. ASSESSMENT: 1. Acute viral bronchitis with hyperactive airway. 2. Hypertension. 3. Hypothyroidism. 4. Hodgkin's lymphoma. PLAN: We will discharge patient on azithromycin, as well as Flovent inhaler and we will follow as an outpatient. The patient also had a cardiology consultation and echocardiogram done that was unremarkable. Cardiology cleared the patient for discharge. [facility] MD Fco
== END 2016-12-16 16:38 | disposition home or self-care (01) ==
LOC: H.ER 18:31 → H.EROBSV 19:30 → H.ERHOLD 22:03 → H.TEL 23:56
PROVIDERS: ADMIT Internal Medicine; ATTEND Internal Medicine
DX: J20.8 Acute bronchitis due to other specified organisms (principal); E03.9 Hypothyroidism, unspecified; E78.5 Hyperlipidemia, unspecified; E78.00 Pure hypercholesterolemia, unspecified; I35.1 Nonrheumatic aortic (valve) insufficiency; E05.90 Thyrotoxicosis, unspecified without thyrotoxic crisis or storm; I10 Essential (primary) hypertension; F03.90 Unspecified dementia, unspecified severity, without behavioral disturbance, psychotic disturbance, mood disturbance, and anxiety; K21.9 Gastro-esophageal reflux disease without esophagitis; K29.70 Gastritis, unspecified, without bleeding; Z85.72 Personal history of non-Hodgkin lymphomas; Z85.850 Personal history of malignant neoplasm of thyroid; Z79.82 Long term (current) use of aspirin
CPT/HCPCS: 36415; 71010; 71275; 80048; 80061; 83880; 84443; 84484; 85025; 85730; 93005; 93306; 99285; G0378; J0456; J1644; J7050; Q9967

== ENCOUNTER 2018-07-23 14:46 | Emergency (ER) | payer OTHER ==
[2018-07-23 14:46] VITALS: BMI 21.9
[2018-07-23] MEDS ORDERED: Sodium Chloride 0.9% 1,000 ML IV STA (15:34)
--- NOTE | 2018-07-23 15:38 | ED PDOC ---
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 patient reports the vomiting non bloody non bilious and denies any associated fever, chills, abdominal pain. She also denies any blood in her diarrhea. No recent a ntibiotics use, recent travels or known sick contacts. She reports decrease in appetite as well. PMD: Dr. Stephenson Past Medical History Reviewed: Historical Data, Nursing Documentation, Vital Signs Vital Signs: Last Vital Signs Temp 97.6 F 07/23/18 14:52 Pulse 77 07/23/18 14:52 Resp 16 07/23/18 14:52 BP 128/67 07/23/18 14:52 Pulse Ox 96 07/23/18 14:52 - Medical History PMH: Asthma, Dementia, HTN, Hypercholesterolemia, Hyperlipidemia, Hypothyroidism Denies: HIV, Chronic Kidney Disease - Surgical History Surgical History: Denies: Pacemaker Other surgeries: surgery for thyroid and stomach cancer - Family History Family History: States: Unknown Family Hx - Social History Current smoker - smoking cessation education provided: No Alcohol: None Drugs: Denies - Home Medications Home Medications: Ambulatory Orders Medication Instructions Recorded Azelastine HCl 1 drop OU DAILY 09/27/16 Donepezil [Aricept] 1 tab PO DAILY 09/27/16 Levothyroxine [Synthroid] 100 mcg PO DAILY 09/27/16 Multivitamin [Daily Juan] 1 tab PO DAILY 09/27/16 Omeprazole 40 mg PO DAILY 09/27/16 [id number] CD [Cardizem CD] 240 mg PO DAILY 09/27/16 Aspirin [Adult Low Dose Aspirin EC] 81 mg PO DAILY 10/09/16 Fexofenadine HCl [Nakia NF] 180 mg PO DAILY 10/09/16 Fluticasone Propionate [Flovent 50 mcg INH DAILY 10/09/16 Diskus] Simvastatin [Zocor] 10 mg PO DAILY 10/09/16 traMADol [Ultram] 50 mg PO DAILY 10/09/16 Aspirin [Ecotrin] 81 mg PO DAILY 12/16/16 Atorvastatin [Lipitor] 5 mg PO DAILY tab 12/16/16 Azithromycin [Z-Abilio] 250 mg PO DAILY #6 tab 12/16/16 Fluticasone Propionate [Flonase] 1 spr NAVYA DAILY PRN bottle 12/16/16 Loratadine [Claritin] 10 mg PO DAILY tab 12/16/16 Multimineral/Multivitamin 1 tab PO DAILY tab 12/16/16 [Therapeutic-M Tab] Pantoprazole [Protonix EC Tab] 40 mg PO DAILY ect 12/16/16 Promethazine DM [Phenergan DM 5 ml PO TID #1 cup 12/16/16 Syrup] - Allergies Allergies/Adverse Reactions: Allergies Allergy/AdvReac Type Severity Reaction Status Date / Time diphenhydramine Allergy ITCHING Verified 09/26/16 14:28 [From Benadryl] methylprednisolone Allergy ITCHING Verified 09/26/16 14:28 moxifloxacin Allergy ITCHING Verified 09/26/16 14:28 Review of Systems ROS Statement: Except As Marked, All Systems Reviewed And Found Negative Constitutional: Negative for: Fever, Chills Gastrointestinal: Positive for: Nausea, Vomiting, Diarrhea. Negative for: Abdominal Pain, Hematochezia Physical Exam - Reviewed Nursing Documentation Reviewed: Yes Vital Signs Reviewed: Yes - Physical Exam Appears: Positive for: Non-toxic, No Acute Distress Head Exam: Positive for: ATRAUMATIC, NORMAL INSPECTION, NORMOCEPHALIC Skin: Positive for: Normal Color Eye Exam: Positive for: Normal appearance, EOMI, PERRL ENT: Positive for: Normal ENT Inspection Neck: Positive for: Supple Cardiovascular/Chest: Positive for: Regular Rate, Rhythm. Negative for: Tachycardia Respiratory: Positive for: Normal Breath Sounds. Negative for: Respiratory Distress Gastrointestinal/Abdominal: Positive for: Normal Exam, Soft. Negative for: Tenderness, Mass, Guarding, Rebound Back: Positive for: Normal Inspection Extremity: Positive for: Normal ROM Neurological/Psych: Positive for: Awake, Alert - Laboratory Results Result Diagrams: 07/23/18 16:05 07/23/18 16:05 - ECG O2 Sat by Pulse Oximetry: 96 (RA) Pulse Ox Interpretation: Normal Medical Decision Making Medical Decision Makinyo with nausea, vomiting; dark colored emesis rule out electrluate abnormali ty, infection or SBO Plan: -- Labs -- IV fluids -- Protonix 30mg IV -- Zofran 4mg IV 1850 Labs reviewed, no clinically significant abnormalities. No signs of anemia. CT Abdomen/Pelvis FINDINGS: LOWER THORAX: Unremarkable. LIVER: Unremarkable. No gross lesion. Persistent dilatation of common bile duct and proximal intrahepatic biliary radicles. No obstructing lesion identified. Maximum diameter of the common duct 1.3 cm. GALLBLADDER AND BILE DUCTS: Unremarkable. PANCREAS: Atrophic pancreas. Mild dilatation of proximal pancreatic duct. However, these findings are stable to prior examinations including a CT multiphasic study to assess the pancreas and common bile duct. SPLEEN: Unremarkable. ADRENALS: Unremarkable. No mass. KIDNEYS AND URETERS: Unremarkable. No hydronephrosis. No solid mass. VASCULATURE: Unremarkable. No aortic aneurysm. No atherosclerotic calcification or mural plaque present. BOWEL: Unremarkable. No obstruction. No gross mural thickening. APPENDIX: Normal appendix. PERITONEUM: Unremarkable. No free fluid. No free air. LYMPH NODES: Unremarkable. No enlarged lymph nodes. BLADDER: Unremarkable. REPRODUCTIVE: Unremarkable. BONES: No acute fracture. OTHER FINDINGS: None. IMPRESSION: No acute or significant findings related to/ accounting for the clinical presentation. Additional benign and/or incidental findings described above. No significant interval change compared to the prior examination(s). On reassessment, patient with improvement of symptoms. pt tolerated po, states feels completely better. pt and daughter aware of results of labs. Patient informed of CT findings, instructed to follow up with PMD in 2-3 days. Scribe Attestation: Documented by Isabel Bedolla, acting as a scribe for Guillermo Gonzalez MD Provider Scribe Attestation: All medical record entries made by the Scribe were at my direction and personally dictated by me. I have reviewed the chart and agree that the record accurately reflects my personal performance of the history, physical exam, medical decision making, and the department course for this patient. I have also personally directed, reviewed, and agree with the discharge instructions and disposition. Disposition - Clinical Impression Clinical Impression: Abdominal pain, Diarrhea, Dehydration - Patient ED Disposition Is Patient to be Admitted: No Counseled Patient/Family Regarding: Studies Performed, Diagnosis, Need For Followup - Disposition Disposition: Routine/Home Disposition Time: 18:51 Condition: IMPROVED Additional Instructions: follow up with your primary doctor dr stephenson in 1-2 days stay hydrated return to the ED with any worsening or concerning symptoms Instructions: Viral Gastroenteritis Forms: [employer] (Spanish)
[2018-07-23 16:20] LABS: BASO % 0.4 % (0.0-2.0); EOS # 0.1 K/uL (0.0-0.7); EOS % 1.7 % (0.0-4.0); HEMOGLOBIN 12.5 g/dL (12.0-16.0); LYMPH # 0.5 K/uL (1.0-4.3); LYMPH % 11.5 % (20.0-40.0); MEAN CELL VOLUME 90.2 fl (81.0-99.0); MEAN CORPUSCULAR HEMOGLOBIN 29.5 pg (27.0-31.0); MEAN CORPUSCULAR HGB CONC 32.7 g/dL (33.0-37.0); MEAN PLATELET VOLUME 8.7 fl (7.2-11.7); MONO # 0.6 K/uL (0.0-0.8); NEUT # 3.2 K/uL (1.8-7.0); NEUT % 72.4 % (50.0-75.0); NRBC % 0.1 % (0.0-0.0); RBC 4.25 Mil/uL (3.80-5.20); RED CELL DISTRIBUTION WIDTH 14.3 % (11.5-14.5); WHITE BLOOD COUNT 4.4 K/uL (4.8-10.8)
[2018-07-23 16:27] LABS: ALB/GLOB RATIO 1.5 (1.0-2.1); ALBUMIN 4.1 g/dL (3.5-5.0); BLOOD UREA NITROGEN 27 mg/dl (7-17); CALCIUM 7.3 mg/dL (8.4-10.2); GFR NON-AFRICAN AMERICAN > 60
[2018-07-23 16:32] LABS: ALT/SGPT 20 U/L (9-52); AST/SGOT 38 U/L (14-36)
[2018-07-23] MEDS ORDERED: Iohexol 300 100 ML IJ ONE (17:50)
[2018-07-23] MEDS ORDERED: Sodium Chloride 0.9% 50 ML IV ONE (17:50)
--- NOTE | 2018-07-23 18:26 | CT ---
Date of service: 07/23/2018 PROCEDURE: CT Abdomen and Pelvis with contrast HISTORY: vomiting and diarrhea COMPARISON: 09/26/2016. CT abdomen and pelvis. 03/21/2017 CT abdomen and pelvis 09/27/2016 MRI abdomen. TECHNIQUE: Intravenous contrast dose: 95 cc Omnipaque 300. Radiation dose: Total exam DLP = 365.98 mGy-cm. This CT exam was performed using one or more of the following dose reduction techniques: Automated exposure control, adjustment of the mA and/or kV according to patient size, and/or use of iterative reconstruction technique. FINDINGS: LOWER THORAX: Unremarkable. LIVER: Unremarkable. No gross lesion. Persistent dilatation of common bile duct and proximal intrahepatic biliary radicles. No obstructing lesion identified. Maximum diameter of the common duct 1.3 cm. GALLBLADDER AND BILE DUCTS: Unremarkable. PANCREAS: Atrophic pancreas. Mild dilatation of proximal pancreatic duct. However, these findings are stable to prior examinations including a CT multiphasic study to assess the pancreas and common bile duct. SPLEEN: Unremarkable. ADRENALS: Unremarkable. No mass. KIDNEYS AND URETERS: Unremarkable. No hydronephrosis. No solid mass. VASCULATURE: Unremarkable. No aortic aneurysm. No atherosclerotic calcification or mural plaque present. BOWEL: Unremarkable. No obstruction. No gross mural thickening. APPENDIX: Normal appendix. PERITONEUM: Unremarkable. No free fluid. No free air. LYMPH NODES: Unremarkable. No enlarged lymph nodes. BLADDER: Unremarkable. REPRODUCTIVE: Unremarkable. BONES: No acute fracture. OTHER FINDINGS: None. IMPRESSION: No acute or significant findings related to/ accounting for the clinical presentation. Additional benign and/or incidental findings described above. No significant interval change compared to the prior examination(s).
[2018-07-23 18:59] VITALS: BP 120/70; PULSE 74; RESP 20; TEMP 98.6
[2018-07-24 21:12] VITALS: O2SAT 96
== END 2018-07-23 18:58 | disposition home or self-care (01) ==
LOC: H.ER 14:46
DX: R10.9 Unspecified abdominal pain (principal); R19.7 Diarrhea, unspecified; E86.0 Dehydration; E03.9 Hypothyroidism, unspecified; E78.00 Pure hypercholesterolemia, unspecified; F03.90 Unspecified dementia, unspecified severity, without behavioral disturbance, psychotic disturbance, mood disturbance, and anxiety; I10 Essential (primary) hypertension; Z88.8 Allergy status to other drugs, medicaments and biological substances; Z85.028 Personal history of other malignant neoplasm of stomach
CPT/HCPCS: 74177; 80053; 82948; 85025; 96361; 96374; 96375; 99284; C9113; J2405; J7030; Q9967